=== PATIENT | male | born 1945 | race Caucasian/White ===

== ENCOUNTER → 2020-08-12 | Outpatient (CLI) | payer OTHER | LOC: SJCVCIMAG 12:29 → SJCVC 12:29 | PROVIDERS: ATTEND Internal Medicine Cardiovascular Disease | DX: I45.10 Unspecified right bundle-branch block (principal); R94.31 Abnormal electrocardiogram [ECG] [EKG]; I11.9 Hypertensive heart disease without heart failure; E78.5 Hyperlipidemia, unspecified; R00.0 Tachycardia, unspecified; E11.9 Type 2 diabetes mellitus without complications; K21.9 Gastro-esophageal reflux disease without esophagitis; R00.2 Palpitations; M19.90 Unspecified osteoarthritis, unspecified site; Z98.890 Other specified postprocedural states; Z79.84 Long term (current) use of oral hypoglycemic drugs; Z79.899 Other long term (current) drug therapy; Z86.16 Personal history of COVID-19; Z87.891 Personal history of nicotine dependence; Z82.49 Family history of ischemic heart disease and other diseases of the circulatory system ==

== ENCOUNTER → 2020-08-12 | Outpatient (CLI) | payer OTHER | LOC: CAT 14:19 | PROVIDERS: ATTEND Internal Medicine Cardiovascular Disease | DX: Z13.6 Encounter for screening for cardiovascular disorders (principal); I25.10 Atherosclerotic heart disease of native coronary artery without angina pectoris; E78.00 Pure hypercholesterolemia, unspecified ==

== ENCOUNTER → 2020-09-08 | Outpatient (CLI) | payer OTHER | LOC: SJCVCIMAG 07:34 | PROVIDERS: ATTEND Internal Medicine Cardiovascular Disease | DX: R94.31 Abnormal electrocardiogram [ECG] [EKG] (principal); R06.00 Dyspnea, unspecified; I10 Essential (primary) hypertension; E78.49 Other hyperlipidemia; I45.10 Unspecified right bundle-branch block; E11.9 Type 2 diabetes mellitus without complications; R00.2 Palpitations; D47.2 Monoclonal gammopathy; M19.90 Unspecified osteoarthritis, unspecified site; K21.9 Gastro-esophageal reflux disease without esophagitis; R53.83 Other fatigue; Z86.16 Personal history of COVID-19; Z79.84 Long term (current) use of oral hypoglycemic drugs; Z79.899 Other long term (current) drug therapy; Z87.891 Personal history of nicotine dependence ==

== ENCOUNTER → 2020-09-15 | Outpatient (CLI) | payer OTHER ==
[~2020-09-15] VITALS: Ht 177.8 cm; Wt 79.8 kg
[~2020-09-15] MED LIST: AMARYL2 M1 PO; ASA81BEC PO; BYSTOLIC10 MG PO; COZAAR 25 MG TA25 M2 PO; CRESTOR40 MG PO; METFORMIN HCL500 M3 PO; OMEPRAZOLE40 MG PO
[2020-09-15 07:32] LABS: HEMATOCRIT 39.7 % (42.0-52.0); HEMOGLOBIN 12.9 gm/dL (14.0-18.0); MCH 26.8 pg (26.0-34.0); MCHC 32.4 g/dL (28.0-37.0); MCV 82.6 fL (80.0-100.0); RBC 4.81 mil/uL (4.50-6.00); RDW 13.8 % (10.5-14.5); WBC 4.8 thou/uL (4.0-11.0)
[2020-09-15 07:40] LABS: CALCIUM 9.2 mg/dL (8.5-10.1); CREATININE 1.2 mg/dL (0.7-1.3); POTASSIUM 3.8 mmol/L (3.5-5.1)
--- NOTE | 2020-09-15 17:22 | CATHLAB ---
[facility] [place] [address] INVASIVE PROCEDURE REPORT Name: LENNONEMMANUEL CANTOR Room #: REG [facility] CharleneAnnaTommy.#: [id number] Admission: 09/15/20 Attend Phys: Yang Rankin MD, Discharge: Date of : 47 Report #: [id number] THIS REPORT FOR: cc: Richard Amador Jr., MD, Jr.,Yang Arrington MD, MD [facility] ~ APPROVED REPORT Study performed: 09/15/2020 07:38:24 Patient Details The patient is a 75 year-old male Event Personnel Yang Rankin Pension Examiner, Nicholas Clemons RN RN, Tia Clay RTR, Daniel Mustafa Roberta Monitor Procedures Performed Art Access - R femoral artery* Left Heart Cath w/or w/o Coronaries [id number] [facility] Aortogram Abdominal Peripheral Angio 921330 45083 Initial Mod Sed Same Phys/QHP Gr 538841 97153 Mod Sed Same Phys/QHP Ea 226486 FFR [id number] FFR Hemostasis w/ Mynx Indication Chest pain Procedure Narrative The Right Groin^ was infiltrated with 1% Lidocaine subcutaneous anesthesia. A PINNACLE 6FR Sheath #[id number] sheath was inserted into the RFA^. Coronary angiography was performed using coronary diagnostic catheters. The right coronary system was accessed and visualized with a JR4 catheter. The left coronary system was accessed and visualized with a JL4 catheter. The left ventricle was accessed and visualized with a STR PIG catheter. Left ventriculogram was performed in 30 degree projection. The patient tolerated the procedure well and there were no complications associated with the procedure. There was no hematoma. Intraoperative Conscious Sedation Sedation start time: 850 Case end Time: 934 Fentanyl 75 mcg Versed 1 mg Fluoro Time: 3.60 minutes [facility] [employer] [address] INVASIVE PROCEDURE REPORT Name: EMMANUEL LENNON Room #: [facility] [id number] Admission: 09/15/20 Attend Phys: Yang Rankin, Discharge: Date of : 47 Report #: [id number] Dose: DAP 5662.70 cGycm2 740 mGy Contrast Type and Amount: Omnipaque 100 ml Hemodynamics The aortic pressure is 176/80 mmHg with a mean of 45 mmHg. The left ventricular pressure is 176/11 mmHg with a mean of mmHg. The left ventricular end diastolic pressure is 22 mmHg. PCI Technique Lesion A LAUNCHER 6FR EBU 3.75 #[id number] Guide Catheter was used to engage the ostium. A Aeris Pressure Wire 175 cm [id number] Interventional Guidewire was used to cross the lesion. COMMENTS FFR PRE NUMBERS: 1.0, MLAD WIRE MEASUREMENTS: .96 Conclusion #1. Normal left ventricular size with LV function mildly reduced EF 45 to 50% range. #2 abdominal aorta with mild tortuosity no aneurysm formation brisk flow. 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 #4 LAD with an eccentric proximal LAD eccentric lesion of 65 to 70%. FFR was performed 0.96 reading. Would suggest not physiologically significant lesion. His LAD is diffusely diseased around the apex. #5 circumflex OM nondominant with mild disease. #6 dominant right coronary artery with mild irregularities no occlusive disease. Conditions and plan: Continue aggressive risk factor modification. We will follow that LAD lesion. It is not meeting physiologic significance and the patient is asymptomatic. 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 There was no evidence of anterior wall ischemia on the stress echo. <ELECTRONICALLY SIGNED> By: Yang Rankin MD, FACC 09/15/20 172 21 21 Yang Rankin MD, FACC /INF
== END | disposition home or self-care (01) ==
LOC: CATH 06:29
PROVIDERS: ATTEND Internal Medicine Cardiovascular Disease
DX: R07.9 Chest pain, unspecified (principal); I25.10 Atherosclerotic heart disease of native coronary artery without angina pectoris; I10 Essential (primary) hypertension; E78.5 Hyperlipidemia, unspecified; E11.9 Type 2 diabetes mellitus without complications; I25.2 Old myocardial infarction; Z98.890 Other specified postprocedural states; Z79.899 Other long term (current) drug therapy; Z87.891 Personal history of nicotine dependence; Z79.82 Long term (current) use of aspirin

== ENCOUNTER → 2021-03-24 | Outpatient (CLI) | payer OTHER | LOC: SJCVC 11:20 | PROVIDERS: ATTEND Internal Medicine Cardiovascular Disease | DX: I25.10 Atherosclerotic heart disease of native coronary artery without angina pectoris (principal); I42.9 Cardiomyopathy, unspecified; R06.00 Dyspnea, unspecified; I10 Essential (primary) hypertension; E78.49 Other hyperlipidemia; E11.9 Type 2 diabetes mellitus without complications; Z87.891 Personal history of nicotine dependence; Z72.89 Other problems related to lifestyle; Z79.84 Long term (current) use of oral hypoglycemic drugs; Z79.82 Long term (current) use of aspirin; Z79.899 Other long term (current) drug therapy; Z86.16 Personal history of COVID-19 ==

== ENCOUNTER → 2021-05-16 | Outpatient (CLI) | payer OTHER | LOC: SJCVCIMAG 07:56 | PROVIDERS: ATTEND Internal Medicine Cardiovascular Disease | DX: I34.0 Nonrheumatic mitral (valve) insufficiency (principal); R00.0 Tachycardia, unspecified; I42.9 Cardiomyopathy, unspecified ==